=== PATIENT | female | born 1975 | race Caucasian/White ===

== ENCOUNTER 2016-10-29 21:03 | Inpatient (IN) | payer MEDICARE, OTHER ==
[~2016-10-29] VITALS: Ht 165.1 cm; Wt 71.3 kg
--- NOTE | 2016-10-29 21:19 | PD ---
HPI Chief Complaint: Psychiatric Symptoms Time Seen by Provider: 21:19 Loy Lazcano MD Oct 29, 2016 21:19
--- NOTE | 2016-10-29 21:41 | PD ---
HPI Chief Complaint: Psychiatric Symptoms Time Seen by Provider: 21:15 Travel History International Travel<30 days: No Contact w/Intl Traveler<30days: No Traveled to known affect area: No History of Present Illness HPI 41-year-old white female presents to emergency department under Odonnell act by PD. The patient allegedly had made suicidal statements at home after having an argument with family. The patient has a history of bipolar disorder and has been noncompliant with medicines. She was also had a history of a head injury several years ago. She also abuses dextromethorphan/Coricidin. Patient's history and exam is assisted by [employer] sign language. 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, Speech and hearing impediment, traumatic brain injury, bipolar, substance abuse Past Surgical History Surgical History: No Previous Surgery Social History Alcohol Use: No Tobacco Use: Yes Substance Use: No Allergies-Medications (Allergen,Severity, Reaction): Coded Allergies: No Known Allergies (Unverified , 10/29/16) Review of Systems ROS Limitations: Hearing Impaired, Speech Impaired, Poor Historian Except as stated in HPI: all other systems reviewed are Neg General / Constitutional: Positive: Fever, Chills HENT: Positive: Sore Throat, Neck Pain Cardiovascular: Positive: Diaphoresis, No: Palpitations Respiratory: Positive: Cough, Shortness of Breath, Wheezing Gastrointestinal: Positive: Nausea, No: Vomiting Genitourinary: No: Frequency, Dysuria Musculoskeletal: Positive: Myalgias, Arthralgias Skin: No Rash Neurologic: Positive: Weakness, Coordination Problem Psychiatric: Positive: Anxiety, Depression, Substance Abuse, No: Suicidal Ideations, Homicidal Ideation Physical Exam Narrative GENERAL: Well-nourished, well-developed patient. SKIN: Warm and dry. HEAD: Normocephalic and atraumatic. EYES: No scleral icterus. No injection or drainage. ENT: No nasal drainage noted. Mucous membranes pink. Airway patent. NECK: Supple, trachea midline. Moves head freely without obvious discomfort. CARDIOVASCULAR: Regular rate and rhythm without murmurs, gallops, or rubs. RESPIRATORY: Breath sounds equal bilaterally. No accessory muscle use. GASTROINTESTINAL: Abdomen soft, non-tender, nondistended. EXTREMITIES: No cyanosis or edema. BACK: Nontender without obvious deformity. No CVA tenderness. NEURO: Patient is alert and oriented. Patient has a unsteady gait. She has a hearing and speech deficit PSYCH: No delusions. No auditory or visual hallucinations. Data Data Last Documented VS Vital Signs Date Time Temp Pulse Resp B/P (MAP) Pulse Ox O2 Delivery O2 Flow Rate FiO2 10/29/16 22:04 98.4 86 16 124/68 (86) 100 Orders Orders Complete Blood Count With Diff (10/29/16 21:37) Comprehensive Metabolic Panel (10/29/16 21:37) Ed Urine Pregnancytest Poc (10/29/16 21:37) Psych Screen (10/29/16 21:37) Drug Screen, Random Urine (10/29/16 21:37) Alcohol (Ethanol) (10/29/16 21:37) Salicylates (Aspirin) (10/29/16 21:37) Tylenol (Acetaminophen) (10/29/16 21:37) Urinalysis - C+S If Indicated (10/29/16 22:44) Chest, Single Ap (10/29/16 22:44) Iv Access Insert/Monitor (10/29/16 22:44) Ecg Monitoring (10/29/16 22:44) Potassium Chloride (Kcl) (10/29/16 22:45) Potassium Chlor 10 Meq Premix (Kcl 10 Me (10/29/16 22:45) Lorazepam Inj (Ativan Inj) (10/29/16 23:00) Blood Culture (10/29/16 23:02) Lactic Acid (10/29/16 23:02) Piperacil-Tazo 4.5 Gm Premix (Zosyn 4.5 (10/29/16 23:45) Vancomycin Inj (Vancomycin Inj) (10/29/16 23:45) Oximetry (10/29/16 23:47) Oxygen Administration (10/29/16 23:47) Albuterol-Ipratropium Neb (Duoneb Neb) (10/30/16 00:00) Sodium Chloride 0.9% Flush (Ns Flush) (10/30/16 00:00) Electrocardiogram (10/30/16 00:01) Admit Order (Ed Use Only) (10/30/16 00:01) Labs Laboratory Tests Test 10/29/16 21:40 White Blood Count 25.3 TH/MM3 Red Blood Count 3.74 MIL/MM3 Hemoglobin 11.7 GM/DL Hematocrit 35.3 % Mean Corpuscular Volume 94.3 FL Mean Corpuscular Hemoglobin 31.3 PG Mean Corpuscular Hemoglobin Concent 33.2 % Red Cell Distribution Width 13.4 % Platelet Count 271 TH/MM3 Mean Platelet Volume 9.1 FL Neutrophils (%) (Auto) 91.2 % Lymphocytes (%) (Auto) 3.6 % Monocytes (%) (Auto) 5.0 % Eosinophils (%) (Auto) 0.1 % Basophils (%) (Auto) 0.1 % Neutrophils # (Auto) 23.1 TH/MM3 Lymphocytes # (Auto) 0.9 TH/MM3 Monocytes # (Auto) 1.3 TH/MM3 Eosinophils # (Auto) 0.0 TH/MM3 Basophils # (Auto) 0.0 TH/MM3 CBC Comment DIFF FINAL Differential Comment Blood Urea Nitrogen 14 MG/DL Creatinine 0.90 MG/DL Random Glucose 139 MG/DL Total Protein 6.8 GM/DL Albumin 3.1 GM/DL Calcium Level 8.3 MG/DL Alkaline Phosphatase 90 U/L Aspartate Amino Transf (AST/SGOT) 46 U/L Alanine Aminotransferase (ALT/SGPT) 23 U/L Total Bilirubin 0.4 MG/DL Sodium Level 135 MEQ/L Potassium Level 2.9 MEQ/L Chloride Level 102 MEQ/L Carbon Dioxide Level 26.4 MEQ/L Anion Gap 7 MEQ/L Estimat Glomerular Filtration Rate 69 ML/MIN Salicylates Level 2.6 MG/DL Urine Opiates Screen NEG Acetaminophen Level LESS THAN 2.0 MCG/ML Urine Barbiturates Screen NEG Urine Amphetamines Screen NEG Urine Benzodiazepines Screen NEG Urine Cocaine Screen NEG Urine Cannabinoids Screen POS Ethyl Alcohol Level LESS THAN 3 MG/DL MDM Medical Decision Making Medical Screen Exam Complete: Yes Emergency Medical Condition: Yes Medical Record Reviewed: Yes Interpretation(s) CBC & BMP Diagram 10/29/16 21:40 Total Protein 6.8, Albumin 3.1 L, Calcium Level 8.3 L, Alkaline Phosphatase 90, Aspartate Amino Transf (AST/SGOT) 46 H, Alanine Aminotransferase (ALT/SGPT) 23, Total Bilirubin 0.4 Last 24 hours Impressions Chest X-Ray 10/29/16 [id number] Signed Impressions: Service Date/Time: Saturday, October 29, 2016 22:48 - CONCLUSION: Patchy alveolar consolidations within the lung bases bilaterally consistent with probable pneumonia. Clinical correlation is recommended. Elliot Moreau MD Differential Diagnosis MDM: High Differential diagnoses: Schizophrenia, schizoaffective disorder, bipolar, anxiety, depression, adjustment reaction, mood disorder NOS, substance induced mood disorder, infection,electrolyte abnormality, malingering. Narrative Course Mental health screening discussed with the patient. Psychiatric screen ordered. The patient's history and exam is performed using [employer]. IV access is obtained. Patient's potassium is 2.9. White count is 25,000. X- ray of the chest reveals bilateral infiltrates. The patient has been sick and coughing and congested as well as 100 breath. She is given a DuoNeb. She is placed on a monitoring analyst and given IV potassium 10 mEq as well as 60 mEq by mouth. Blood cultures sent as well as lactic acid. Patient's given 4.5 g of Zosyn IV as as well as 1 g of vancomycin IV. The patient will necessitate admission to the hospital for further evaluate her pneumonia. She will be seen as an inpatient by psychiatry under her Odonnell act. A sitter will be ordered. The case has been discussed with Dr. Torres. She agrees to let the patient. She agrees to plan follow-up. Sepsis Criteria SIRS Criteria (2 or more): WBC > 74601, < 4000 or > 10% bands Sepsis Criteria (SIRS+source): Infect source susp/known Diagnosis Primary Impression: Bilateral pneumonia Qualified Codes: J18.9 - Pneumonia, unspecified organism Additional Impressions: bipolar Odonnell act Hypokalemia Condition: Stable Carlos Cerna Oct 29, 2016 21:41
[2016-10-29 22:04] VITALS: BP 124/68; PULSE 86; RESP 16; TEMP 98.4; O2SAT 100
[2016-10-29 22:13] LABS: AUTOMATED NEUTROPHIL # 23.1 TH/MM3 (1.8-7.7); BASOPHIL % 0.1 % (0.0-2.0); EOSINOPHIL % 0.1 % (0.0-4.0); HEMATOCRIT 35.3 % (35.0-46.0); HEMO FLAGS DIFF FINAL; LYMPH % 3.6 % (9.0-44.0); LYMPHOCYTE # 0.9 TH/MM3 (1.0-4.8); MEAN CELL VOLUME 94.3 FL (80.0-100.0); MEAN CORPUSCULAR HEMOGLOBIN 31.3 PG (27.0-34.0); MEAN CORPUSCULAR HGB CONC 33.2 % (32.0-36.0); NEUT % 91.2 % (16.0-70.0); PLATELET COUNT 271 TH/MM3 (150-450); RED BLOOD COUNT 3.74 MIL/MM3 (4.00-5.30); RED CELL DISTRIBUTION WIDTH 13.4 % (11.6-17.2); WHITE BLOOD COUNT 25.3 TH/MM3 (4.0-11.0)
[2016-10-29 22:33] LABS: ALKALINE PHOSPHATASE 90 U/L (45-117); ALT (GPT) 23 U/L (10-53); ANION GAP 7 MEQ/L (5-15); AST (GOT) 46 U/L (15-37); BICARBONATE 26.4 MEQ/L (21.0-32.0); BLOOD UREA NITROGEN 14 MG/DL (7-18); CHLORIDE 102 MEQ/L (98-107); GLOMERULAR FILTRATION RATE 69 ML/MIN (>89); SODIUM (NA) 135 MEQ/L (136-145); TOTAL BILIRUBIN ADULT 0.4 MG/DL (0.2-1.0)
[2016-10-29 22:34] LABS: ACETAMINOPHEN LESS THAN 2.0 MCG/ML (10.0-30.0); ALCOHOL LESS THAN 3 MG/DL (0-5)
[2016-10-29 22:36] LABS: POTASSIUM 2.9 MEQ/L (3.5-5.1)
[2016-10-29] MEDS ORDERED: POTASSIUM CHLOR 10 MEQ PREMIX 100 ML IV ONE (22:45)
[2016-10-29] MEDS ORDERED: POTASSIUM CHLORIDE 20 MEQ CONTROLLED RELEASE TAB PO ONE (22:45)
[2016-10-29] MEDS ORDERED: LORazepam 2 MG/ML VIAL IV PUSH ONE (23:00)
--- NOTE | 2016-10-29 23:11 | RADRPT ---
EXAM DATE/TIME: 10/29/2016 22:48 [facility] COMPARISON: No previous studies available for comparison. INDICATIONS : Cough MEDICAL HISTORY : None. SURGICAL HISTORY : None. ENCOUNTER: Initial ACUITY: 1 day PAIN SCORE: 0/10 LOCATION: chest FINDINGS: Patchy alveolar consolidations are noted within the lung bases consistent with probable pneumonia. Cl inical correlation is recommended. The heart is normal. CONCLUSION: Patchy alveolar consolidations within the lung bases bilaterally consistent with probable pneumonia. Clinical correlation is recommended. Elliot Moreau MD on October 29, 2016 at 23:09 Board Certified Radiologist. This report was verified electronically.
[2016-10-29] MEDS ORDERED: VANCOMYCIN INJ 1,000 MG in SODIUM CHLOR 0.9% 250 ML INJ 250 ML IV ONE (23:45)
[2016-10-29] MEDS ORDERED: PIPERACIL-TAZO 4.5 GM PREMIX 100 ML IV ONE (23:45)
[2016-10-30] VITALS (8 sets, daily range): BP systolic 110–137; BP diastolic 67–80; PULSE 83–97; RESP 16–21; TEMP 97.2–98.9; O2SAT 91–100
[2016-10-30] MEDS ORDERED: RESP: ALBUTEROL 2.5 MG/IPRATROPIUM 0.5 MG NEB (SCH) INH ONE
[2016-10-30] MEDS ORDERED: SODIUM CHLORIDE 0.9% FLUSH 10 ML FLUSH IVF PRN
[2016-10-30] MEDS ORDERED: SENNOSIDES 8.6 MG TAB PO PRN (00:15)
[2016-10-30] MEDS ORDERED: LACTULOSE SYRUP 20 GM/30 ML CUP PO PRN (00:15)
[2016-10-30] MEDS ORDERED: ONDANSETRON HCL 4 MG/2 ML VIAL IVP PRN (00:15)
[2016-10-30] MEDS ORDERED: BISACODYL 10 MG SUPP RECTAL PRN (00:15)
[2016-10-30] MEDS ORDERED: MAGNESIUM HYDROXIDE SUSP 30 ML CUP PO PRN (00:15)
[2016-10-30] MEDS ORDERED: SODIUM CHLORIDE 0.9% FLUSH 10 ML FLUSH IV FLUSH PRN (00:15)
[2016-10-30] MEDS ORDERED: ACETAMINOPHEN 325 MG TAB PO PRN (00:15)
[2016-10-30] MEDS ORDERED: Vancomycin Consult Pharmacy 1 EA OTHER SCH (00:15)
[2016-10-30 00:33] LABS: BACTERIA, URINE OCC /hpf; BLOOD, URINE NEG (NEG); COMMENT (UR) CULT NOT INDICATED; CULTURE IF INDICATED CULT NOT INDICATED; GLUCOSE,URINE NEG (NEG); KETONE, URINE 10 mg/dL (NEG); MUCUS URINE FEW /lpf (OCC); NITRITE,URINE NEG (NEG); SQUAMOUS EPITHELIAL CELL URINE 5 /hpf (0-5); URINE COLOR LIGHT-YELLOW (YELLW/STRAW)
[2016-10-30] MEDS ORDERED: VANCOMYCIN INJ 2,000 MG in SODIUM CHLORID 0.9% 500 ML INJ 500 ML IV ONE (01:00)
--- NOTE | 2016-10-30 01:17 | HHI.HP ---
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 Per report, pt apparently had argument w/ family members and told them she wanted to hurt herself. Pt apparently moved to area recently and has been off of all medications. On arrival, BP 124/60, HR 86, O2 sat 100% on RA, Afebrile. WBC 25.3 with elevated neutrophil count. K + 2.9. GFR 69. Lactic Acid 0.8. Urine Drug Screen positive for Marijuana. Alcohol negative. CXR with patchy alveolar consolidation at the lung bases bilaterally consistent with probable pneumonia. S/p Vanc/Zosyn in ER. Review of Systems Except as stated in HPI: all other systems reviewed are Neg ROS: 14 point review of systems otherwise negative. 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 No h/o DM or CAD Social History PAST SOCIAL HISTORY: Negative for alcohol. Positive for tobacco. History of substance abuse Physical Exam Vital Signs Vital Signs Date Time Temp Pulse Resp B/P (MAP) Pulse Ox O2 Delivery O2 Flow Rate FiO2 10/30/16 00:00 99 Nasal Cannula 2.00 10/30/16 00:00 21 99 Nasal Cannula 2.00 10/29/16 22:04 98.4 86 16 124/68 (86) 100 Physical Exam PE: GENERAL: Middle-aged white female in no acute distress. Hearing impaired. HEENT: PERRLA, EOMI. No scleral icterus or conjunctival pallor. No lid lag or facial droop. CARDIOVASCULAR: Regular rate and rhythm. No obvious murmurs to auscultation. No chest tenderness to palpation. RESPIRATORY: No obvious rhonchi or wheezing. Clear to auscultation. Breath sounds equal bilaterally. GASTROINTESTINAL: Abdomen soft, non-tender, nondistended. BS normal. MUSCULOSKELETAL: Extremities without clubbing, cyanosis, or edema. No obvious deformities. NEUROLOGICAL: Awake, alert and oriented x4. No focal neurologic deficits. Moving both upper and lower extremities spontaneously. Laboratory Laboratory Tests Test 10/29/16 02:10 10/29/16 21:40 10/30/16 00:05 Urine Color LIGHT-YELLOW Urine Turbidity HAZY Urine pH 6.0 Urine Specific [place] 1.008 Urine Protein NEG Urine Glucose (UA) NEG Urine Ketones 10 Urine Occult Blood NEG Urine Nitrite NEG Urine Bilirubin NEG Urine Urobilinogen LESS THAN 2.0 Urine Leukocyte Esterase TRACE Urine RBC LESS THAN 1 Urine WBC 2 Urine Squamous Epithelial Cells 5 Urine Bacteria OCC Urine Mucus FEW Microscopic Urinalysis Comment CULT NOT INDICATED White Blood Count 25.3 Red Blood Count 3.74 Hemoglobin 11.7 Hematocrit 35.3 Mean Corpuscular Volume 94.3 Mean Corpuscular Hemoglobin 31.3 Mean Corpuscular Hemoglobin Concent 33.2 Red Cell Distribution Width 13.4 Platelet Count 271 Mean Platelet Volume 9.1 Neutrophils (%) (Auto) 91.2 Lymphocytes (%) (Auto) 3.6 Monocytes (%) (Auto) 5.0 Eosinophils (%) (Auto) 0.1 Basophils (%) (Auto) 0.1 Neutrophils # (Auto) 23.1 Lymphocytes # (Auto) 0.9 Monocytes # (Auto) 1.3 Eosinophils # (Auto) 0.0 Basophils # (Auto) 0.0 CBC Comment DIFF FINAL Differential Comment Blood Urea Nitrogen 14 Creatinine 0.90 Random Glucose 139 Total Protein 6.8 Albumin 3.1 Calcium Level 8.3 Alkaline Phosphatase 90 Aspartate Amino Transf (AST/SGOT) 46 Alanine Aminotransferase (ALT/SGPT) 23 Total Bilirubin 0.4 Sodium Level 135 Potassium Level 2.9 Chloride Level 102 Carbon Dioxide Level 26.4 Anion Gap 7 Estimat Glomerular Filtration Rate 69 Salicylates Level 2.6 Urine Opiates Screen NEG Acetaminophen Level LESS THAN 2.0 Urine Barbiturates Screen NEG Urine Amphetamines Screen NEG Urine Benzodiazepines Screen NEG Urine Cocaine Screen NEG Urine Cannabinoids Screen POS Ethyl Alcohol Level LESS THAN 3 Lactic Acid Level 0.8 Date/Time Source Procedure Growth Status 10/30/16 00:05 Blood Peripheral Aerobic Blood Culture Pending Received 10/30/16 00:05 Blood Peripheral Anaerobic Blood Culture Pending Received Result Diagram: 10/29/16213910/29/162139 Caprini VTE Risk Assessment Caprini VTE Risk Assessment: No/Low Risk (score <= 1) Caprini Risk Assessment Model Point Value = 1 Point Value = 2 Point Value = 3 Point Value = 5 Age 41-60 Minor surgery BMI > 25 kg/m2 Swollen legs Varicose veins or History of unexplained or recurrent spontaneous Oral contraceptives or hormone replacement Sepsis (< 1 month) Serious lung disease, including pneumonia (< 1 month) Abnormal pulmonary function Acute myocardial infarction Congestive heart failure (< 1 month) History of inflammatory bowel disease Medical patient at bed rest Age 61-74 Arthroscopic surgery Major open surgery (> 45 min) Laparoscopic surgery (> 45 min) Malignancy Confined to bed (> 72 hours) Immobilizing plaster cast Central venous access Age >= 75 History of VTE Family history of VTE Factor V Leiden Prothrombin [id number] Lupus anticoagulant Anticardiolipin antibodies Elevated serum homocysteine Heparin-induced thrombocytopenia Other congenital or acquired thrombophilia Stroke (< 1 month) Elective arthroplasty Hip, pelvis, or leg fracture Acute spinal cord injury (< 1 month) Prophylaxis Regimen Total Risk Factor Score Risk Level Prophylaxis Regimen 0-1 Low Early ambulation 2 Moderate Order ONE of the following: *Sequential Compression Device (SCD) *Heparin 5000 units SQ BID 3-4 Higher Order ONE of the following medications: *Heparin 5000 units SQ TID *Enoxaparin/Lovenox 40 mg SQ daily (WT < 150 kg, CrCl > 30 mL/min) *Enoxaparin/Lovenox 30 mg SQ daily (WT < 150 kg, CrCl > 10-29 mL/min) *Enoxaparin/Lovenox 30 mg SQ BID (WT < 150 kg, CrCl > 30 mL/min) AND/OR *Sequential Compression Device (SCD) 5 or more Highest Order ONE of the following medications: *Heparin 5000 units SQ TID (Preferred with Epidurals) *Enoxaparin/Lovenox 40 mg SQ daily (WT < 150 kg, CrCl > 30 mL/min) *Enoxaparin/Lovenox 30 mg SQ daily (WT < 150 kg, CrCl > 10-29 mL/min) *Enoxaparin/Lovenox 30 mg SQ BID (WT < 150 kg, CrCl > 30 mL/min) AND *Sequential Compression Device (SCD) Assessment and Plan Problem List: (1) PNA (pneumonia) ICD Code: J18.9 - Pneumonia, unspecified organism (2) Hypokalemia ICD Code: E87.6 - Hypokalemia Status: Acute (3) Suicidal ideation ICD Code: R45.851 - Suicidal ideations (4) Deafness ICD Code: H91.90 - Unspecified hearing loss, unspecified ear (5) Tobacco abuse ICD Code: Z72.0 - Tobacco use Assessment and Plan A/P: 1. PNA: WBC 25.3, afebrile, CXR w/ bilateral patchy consolidations, likely pneumonia, images reviewed by me. S/p Vanc/Zosyn in ER, follow up Blood/Sputum Cultures, continue IV Abx, DuoNeb prn, Mucinex. 2. Hypokalemia: K+ 2.8, s/p replacement in ER, will recheck and replace as needed. 3. Suicidal Ideation: Currently under Odonnell Act by Police. [place]. Consult Psych. 4. 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 5. Tobacco Abuse: Pt counselled. Ativan/NicoDerm prn if needed. 6. DVT Prophylaxis: SCD/Teds. 7. Social work for d/c planning as needed. 8. Case discussed at length w/ ER physician Physician Certification 2 Midnight Certification Type: Admission for Inpatient Services Order for Inpatient Services The services are ordered in accordance with Medicare regulations or non- Medicare payer requirements, as applicable. In the case of services not specified as inpatient-only, they are appropriately provided as inpatient services in accordance with the 2-midnight benchmark. Estimated LOS (days): 2 days is the estimated time the patient will need to remain in the hospital, assuming treatment plan goals are met and no additional complications. Post-Hospital Plan: Not yet determined Vero Torres MD Oct 30, 2016 01:17
[2016-10-30] MEDS: RESP: ALBUTEROL 2.5 MG/IPRATROPIUM 0.5 MG NEB (PRN) NEB (03:11)
[2016-10-30 07:38] LABS: AUTOMATED NEUTROPHIL # 11.6 TH/MM3 (1.8-7.7); BASOPHIL % 0.2 % (0.0-2.0); EOSINOPHIL # 0.1 TH/MM3 (0-0.4); EOSINOPHIL % 0.4 % (0.0-4.0); HEMATOCRIT 31.2 % (35.0-46.0); HEMO FLAGS DIFF FINAL; LYMPH % 11.6 % (9.0-44.0); LYMPHOCYTE # 1.7 TH/MM3 (1.0-4.8); MEAN CELL VOLUME 94.2 FL (80.0-100.0); MEAN CORPUSCULAR HEMOGLOBIN 31.3 PG (27.0-34.0); MEAN CORPUSCULAR HGB CONC 33.2 % (32.0-36.0); MONO % 6.3 % (0.0-8.0); NEUT % 81.5 % (16.0-70.0); PLATELET COUNT 236 TH/MM3 (150-450); RED BLOOD COUNT 3.31 MIL/MM3 (4.00-5.30); RED CELL DISTRIBUTION WIDTH 13.2 % (11.6-17.2); WHITE BLOOD COUNT 14.2 TH/MM3 (4.0-11.0)
[2016-10-30] MEDS: PIPERACIL-TAZO 4.5 GM PREMIX 100 ML IV SCH ×3 (07:50→17:36)
[2016-10-30 08:09] LABS: ANION GAP 4 MEQ/L (5-15); AST (GOT) 33 U/L (15-37); BICARBONATE 29.2 MEQ/L (21.0-32.0); BLOOD UREA NITROGEN 10 MG/DL (7-18); CHLORIDE 102 MEQ/L (98-107); GLOMERULAR FILTRATION RATE 80 ML/MIN (>89); POTASSIUM 3.4 MEQ/L (3.5-5.1); SODIUM (NA) 135 MEQ/L (136-145)
[2016-10-30 08:10] LABS: ALT (GPT) 21 U/L (10-53)
[2016-10-30 08:13] LABS: ALKALINE PHOSPHATASE 76 U/L (45-117); TOTAL BILIRUBIN ADULT 0.4 MG/DL (0.2-1.0)
[2016-10-30] MEDS: guaiFENesin E.R. 600 MG TAB PO SCH ×2 (10:15→20:37)
[2016-10-30] MEDS: DOCUSATE SODIUM 50 MG/SENNA 8.6 MG TAB PO SCH ×2 (10:15→20:36)
[2016-10-30] MEDS: SODIUM CHLORIDE 0.9% FLUSH 10 ML FLUSH IV FLUSH SCH ×2 (10:16→20:37)
[2016-10-30] MEDS: VANCOMYCIN 1,000 MG/NS 250 ML IV SCH ×4 (10:16→20:34)
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
[2016-10-30] MEDS ORDERED: MENTHOL LOZENGE BUCCAL PRN (14:30)
--- NOTE | 2016-10-30 14:30 | EKG ---
Date Performed: 10/30/2016 Time Performed: 00:12:19 PTAGE: 41 years EKG: Sinus rhythm POSSIBLE RIGHT ATRIAL ENLARGEMENT LEFT ATRIAL ENLARGEMENT POSSIBLE LEFT VENTRICULAR HYPERTROPHY NONS PECIFIC T-WAVE ABNORMALITY ABNORMAL ECG NO PREVIOUS TRACING DOCTOR: Maxx Bennett Interpretating Date/Time 10/30/2016 14:26:44
[2016-10-30] MEDS: IBUPROFEN 200 MG TAB PO PRN (15:46)
--- NOTE | 2016-10-30 15:53 | HHI.PR ---
Addendum to Inpatient Note Additional Information Patient seen and examined she requested Motrin and muscle relaxant as well as lozenge for her cough Psychiatry will be seeing her later Helena Craft MD Oct 30, 2016 15:53
[2016-10-30] MEDS ORDERED: PILL SPLITTER OTHER PRN (17:30)
[2016-10-30] MEDS: CYCLOBENZAPRINE HCL 10 MG TAB PO PRN (20:36)
[2016-10-31] VITALS (9 sets, daily range): BP systolic 114–134; BP diastolic 68–82; PULSE 86–93; RESP 16–19; TEMP 97.1–100; O2SAT 92–100
[2016-10-31] MEDS: PIPERACIL-TAZO 4.5 GM PREMIX 100 ML IV SCH ×4 (01:25→17:26)
[2016-10-31] MEDS: RESP: ALBUTEROL 2.5 MG/IPRATROPIUM 0.5 MG NEB (PRN) NEB ×2 (01:47→15:35)
[2016-10-31] MEDS ORDERED: ARIPiprazole 10 MG TAB PO SCH (09:00)
[2016-10-31] MEDS: IBUPROFEN 200 MG TAB PO PRN (09:34)
[2016-10-31] MEDS: guaiFENesin E.R. 600 MG TAB PO SCH (09:34)
[2016-10-31] MEDS: DOCUSATE SODIUM 50 MG/SENNA 8.6 MG TAB PO SCH (09:34)
[2016-10-31] MEDS: VANCOMYCIN 1,000 MG/NS 250 ML IV SCH ×2 (09:45)
[2016-10-31] MEDS: CYCLOBENZAPRINE HCL 10 MG TAB PO PRN (15:17)
--- NOTE | 2016-10-31 17:14 | HHI.PR ---
Subjective Remarks Patient is obviously poor historian but she still complaining of cough She is on Abilify by psychiatry will monitor electrolyte and QTC Objective Vitals Vital Signs Date Time Temp Pulse Resp B/P (MAP) Pulse Ox O2 Delivery O2 Flow Rate FiO2 10/31/16 16:48 16 10/31/16 15:35 92 21 10/31/16 12:00 98.7 91 18 132/80 (97) 93 10/31/16 11:00 20 10/31/16 08:00 99.2 93 19 130/78 (95) 92 10/31/16 04:00 100.0 88 17 115/68 (84) 96 10/31/16 01:47 94 Nasal Cannula 2.00 10/31/16 00:00 97.1 93 16 114/72 (86) 100 10/30/16 20:26 100 Nasal Cannula 3.00 10/30/16 19:00 98.9 92 19 110/70 (83) 91 I/O 10/30/16 10/30/16 10/30/16 10/31/16 10/31/16 10/31/16 07:00 15:00 23:00 07:00 15:00 23:00 Intake Total 240 ml 820 ml 730 ml 440 ml 350 ml Output Total 400 ml Balance 240 ml 820 ml 730 ml 40 ml 350 ml Intake Oral 240 ml 720 ml 480 ml 240 ml IV Total 100 ml 250 ml 200 ml 350 ml Output Urine Total 400 ml Stool Total 0 ml # Voids 1 3 3 0 # Bowel Movements 0 0 0 Result Diagram: 10/30/16 0640 10/30/16 0640 Objective Remarks GENERAL: This is a well-nourished, well-developed patient, in no apparent distress. SKIN: No rashes, warm and dry HEAD: Atraumatic. Normocephalic. EYES: Pupils equal round and reactive. Extraocular motions intact. No scleral icterus. ENT: Nose without bleeding, or drainage, Airway patent. NECK: Trachea midline. Supple CARDIOVASCULAR: Regular rate and rhythm without murmurs, gallops, or rubs. RESPIRATORY: Fair air entry bilaterally. No wheezes, rales, or rhonchi. GASTROINTESTINAL: Abdomen soft, non-tender, nondistended. Positive bowel sounds MUSCULOSKELETAL: Extremities without clubbing, cyanosis, or edema. Pedal pulses appreciated NEUROLOGICAL: Awake and alert. Moves all extremity. Normal speech.no focal neurological deficit A/P Problem List: (1) PNA (pneumonia) ICD Code: J18.9 - Pneumonia, unspecified organism (2) Hypokalemia ICD Code: E87.6 - Hypokalemia Status: Acute (3) Suicidal ideation ICD Code: R45.851 - Suicidal ideations (4) Deafness ICD Code: H91.90 - Unspecified hearing loss, unspecified ear (5) Tobacco abuse ICD Code: Z72.0 - Tobacco use Assessment and Plan 1. PNA: With leukocytosis, cough, CXR w/ bilateral patchy, follow up Blood/ Sputum Cultures, continue IV Abx, DuoNeb prn, Mucinex. 2. Hypokalemia: Replace, monitor BMP. 3. Suicidal Ideation: Appreciate psychiatry auscultation, plan to continue with Odonnell act, started Abilify, monitor electrolyte and QTC, discharged to inpatient psych when medically clear 4. 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 5. Tobacco Abuse: Pt counselled. Ativan/NicoDerm prn if needed. 6. DVT Prophylaxis: SCD/Teds. Helena Craft MD Oct 31, 2016 17:14
[2016-10-31] MEDS: SODIUM CHLORIDE 0.9% FLUSH 10 ML FLUSH IV FLUSH SCH (17:26)
[2016-10-31] MEDS ORDERED: PHARMACY ORDERED LAB ONE (21:45)
[2016-10-31 23:08] LABS: BICARBONATE 25.3 MEQ/L (21.0-32.0); MAGNESIUM 2.2 MG/DL (1.5-2.5); POTASSIUM 3.8 MEQ/L (3.5-5.1)
--- NOTE | 2016-11-01 17:15 | EKG ---
Date Performed: 10/31/2016 Time Performed: 18:21:07 PTAGE: 41 years EKG: Sinus rhythm MINIMAL VOLTAGE CRITERIA FOR LVH, CONSIDER NORMAL VARIANT Since previous tracing, no significant ester nge noted BORDERLINE ECG PREVIOUS TRACING : 10/30/2016 00.12 DOCTOR: Lizzy Groves Interpretating Date/Time 11/01/2016 17:08:39
== END 2016-10-31 19:54 | DRG 194 ==
LOC: NEPD 21:03 → NEDA 10-30 00:05 → N06B 10-30 01:19
PROVIDERS: ADMIT Hospitalist; ATTEND Hospitalist
DX: J18.9 Pneumonia, unspecified organism (principal); R45.851 Suicidal ideations; F31.60 Bipolar disorder, current episode mixed, unspecified; E87.6 Hypokalemia; H91.90 Unspecified hearing loss, unspecified ear; Z72.0 Tobacco use; F12.90 Cannabis use, unspecified, uncomplicated; F15.90 Other stimulant use, unspecified, uncomplicated; Z91.19 Patient's noncompliance with other medical treatment and regimen
CPT/HCPCS: 71010; 80048; 80053; 80307; 81001; 83605; 83735; 84100; 84443; 84703; 85025; 87040; 93005; 94640; 94664; 96374; J2060; J2543; J3370; J3480; J7050

== ENCOUNTER 2016-10-31 20:15 | Inpatient (IN) | payer MEDICARE, MEDICAID, OTHER ==
[2016-10-31 20:00] VITALS: BP 121/74; PULSE 85; RESP 14; TEMP 98.8; O2SAT 99
[2016-10-31] MEDS ORDERED: diphenhydrAMINE HCL 50 MG CAP PO PRN (21:15)
[2016-10-31] MEDS ORDERED: VANCOMYCIN INJ 1,000 MG in SODIUM CHLOR 0.9% 250 ML INJ 250 ML IV SCH ×3 (21:15→23:00)
[2016-10-31] MEDS ORDERED: LORazepam 2 MG/ML VIAL IM PRN (21:15)
[2016-10-31] MEDS ORDERED: BENZTROPINE MESYLATE 2 MG/2 ML VIAL IM PRN (21:15)
[2016-10-31] MEDS ORDERED: BENZTROPINE MESYLATE 1 MG TAB PO PRN (21:15)
[2016-10-31] MEDS ORDERED: MAGNESIUM HYDROXIDE SUSP 30 ML CUP PO PRN (21:15)
[2016-10-31] MEDS ORDERED: LORazepam 1 MG TAB PO PRN (21:15)
[2016-10-31] MEDS ORDERED: ALUMINUM/MAGNESIUM/SIMETH 30 ML CUP PO PRN (21:15)
[2016-10-31] MEDS ORDERED: RESP: ALBUTEROL 2.5 MG/IPRATROPIUM 0.5 MG NEB (PRN) NEB (21:15)
[2016-10-31] MEDS ORDERED: PHARMACY ORDERED LAB ONE (22:00)
[2016-10-31] MEDS ORDERED: Vancomycin Consult Pharmacy 1 EA OTHER SCH (22:00)
[2016-10-31] MEDS: ACETAMINOPHEN 325 MG TAB PO PRN (22:15)
[2016-10-31] MEDS: PIPERACIL-TAZO 4.5 GM PREMIX 100 ML IV SCH (22:16)
[2016-11-01] MEDS: PIPERACIL-TAZO 4.5 GM PREMIX 100 ML IV SCH ×4 (04:43→22:26)
[2016-11-01 05:26] VITALS: BP 114/71; PULSE 78; RESP 16; TEMP 98; O2SAT 97
[2016-11-01] MEDS: DOCUSATE SODIUM 50 MG/SENNA 8.6 MG TAB PO SCH ×2 (08:52→20:16)
[2016-11-01] MEDS: VANCOMYCIN INJ 1,000 MG in SODIUM CHLOR 0.9% 250 ML INJ 250 ML IV SCH ×2 (08:52→16:34)
[2016-11-01] MEDS: guaiFENesin E.R. 600 MG TAB PO SCH ×2 (08:52→20:16)
[2016-11-01] MEDS: ARIPiprazole 10 MG TAB PO SCH (08:52)
[2016-11-01] MEDS: NICOTINE 21 MG/24 HR PATCH T-DERMAL SCH (08:53)
[2016-11-01] MEDS: ACETAMINOPHEN 325 MG TAB PO PRN ×3 (08:53→20:25)
[2016-11-01] MEDS: REMOVE OLD PATCH T-DERMAL SCH (08:54)
[2016-11-01 09:19] LABS: AUTOMATED NEUTROPHIL # 5.5 TH/MM3 (1.8-7.7); BASOPHIL # 0.1 TH/MM3 (0-0.2); BASOPHIL % 0.7 % (0.0-2.0); EOSINOPHIL # 0.4 TH/MM3 (0-0.4); EOSINOPHIL % 4.7 % (0.0-4.0); HEMATOCRIT 33.7 % (35.0-46.0); HEMO FLAGS DIFF FINAL; LYMPH % 17.8 % (9.0-44.0); LYMPHOCYTE # 1.4 TH/MM3 (1.0-4.8); MEAN CELL VOLUME 95.2 FL (80.0-100.0); MEAN CORPUSCULAR HEMOGLOBIN 31.1 PG (27.0-34.0); MEAN CORPUSCULAR HGB CONC 32.7 % (32.0-36.0); NEUT % 67.8 % (16.0-70.0); PLATELET COUNT 249 TH/MM3 (150-450); RED BLOOD COUNT 3.53 MIL/MM3 (4.00-5.30); RED CELL DISTRIBUTION WIDTH 13.2 % (11.6-17.2); WHITE BLOOD COUNT 8.1 TH/MM3 (4.0-11.0)
[2016-11-01 09:44] LABS: HDL CHOLESTEROL 47.5 MG/DL (40.0-60.0); LDL CHOLESTEROL 86 MG/DL (0-99)
[2016-11-01 10:33] LABS: HEMOGLOBIN A1a 1.3 %; HEMOGLOBIN A1b 1.8 %; HEMOGLOBIN Ao 84.6 %; HEMOGLOBIN LA1C 2.2 %; HEMOGLOBIN P3 3.7 %
--- NOTE | 2016-11-01 12:00 | HHI.PR ---
Subjective Remarks Patient sleeping, she woke up and looked comfortable smiling, stated she still coughing, denied fever or chills, nurse at the bedside Objective Vitals Vital Signs Date Time Temp Pulse Resp B/P (MAP) Pulse Ox O2 Delivery O2 Flow Rate FiO2 11/01/16 05:26 98.0 78 16 114/71 (85) 97 10/31/16 23:30 18 10/31/16 20:00 98.8 85 14 121/74 (90) 99 I/O 10/31/16 10/31/16 10/31/16 11/01/16 11/01/16 11/01/16 07:00 15:00 23:00 07:00 15:00 23:00 Intake Total 100 ml 1070 ml 240 ml Output Total 1 ml Balance 100 ml 1069 ml 240 ml Intake Oral 720 ml 240 ml IV Total 100 ml 350 ml Output Urine Total 1 ml Result Diagram: 11/01/16 0825 Objective Remarks GENERAL: This is a well-nourished, well-developed patient, in no apparent distress. SKIN: No rashes, warm and dry HEAD: Atraumatic. Normocephalic. EYES: Pupils equal round and reactive. Extraocular motions intact. No scleral icterus. ENT: Nose without bleeding, or drainage, Airway patent. NECK: Trachea midline. Supple CARDIOVASCULAR: Regular rate and rhythm without murmurs, gallops, or rubs. RESPIRATORY: Fair air entry bilaterally. No wheezes, rales, or rhonchi. GASTROINTESTINAL: Abdomen soft, non-tender, nondistended. Positive bowel sounds MUSCULOSKELETAL: Extremities without clubbing, cyanosis, or edema. Pedal pulses appreciated NEUROLOGICAL: Awake and alert. Moves all extremity. Normal speech.no focal neurological deficit A/P Assessment and Plan 11/01: Continue iv antibiotic, patient transferred to med psych floor - PNA: leukocytosis, cough, CXR w/ bilateral patchy, follow up Blood/Sputum Cultures, continue IV Abx, DuoNeb prn, Mucinex. -Leukocytosis improvedsee dropped from 25-14 K - Hypokalemia: Replace, monitor BMP. 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 - Tobacco Abuse: Pt counselled. Ativan/NicoDerm prn if needed. - DVT Prophylaxis: SCD/Teds. Helena Craft MD Nov 01, 2016 12:00
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
[2016-11-01 18:33] VITALS: BP 131/84; PULSE 93; RESP 17; TEMP 98.5
[2016-11-01] MEDS ORDERED: MENTHOL LOZENGE BUCCAL ONE (23:45)
[2016-11-02] MEDS: VANCOMYCIN INJ 1,000 MG in SODIUM CHLOR 0.9% 250 ML INJ 250 ML IV SCH (00:55)
[2016-11-02] MEDS: PIPERACIL-TAZO 4.5 GM PREMIX 100 ML IV SCH (04:22)
[2016-11-02 06:00] VITALS: BP 143/96; PULSE 90; RESP 16; TEMP 98.2; O2SAT 97
[2016-11-02] MEDS ORDERED: PHARMACY ORDERED LAB ONE (08:45)
[2016-11-02] MEDS: DOCUSATE SODIUM 50 MG/SENNA 8.6 MG TAB PO SCH ×2 (09:00→21:34)
[2016-11-02] MEDS: NICOTINE 21 MG/24 HR PATCH T-DERMAL SCH (09:00)
[2016-11-02] MEDS: REMOVE OLD PATCH T-DERMAL SCH (09:00)
[2016-11-02] MEDS: ARIPiprazole 10 MG TAB PO SCH (09:00)
[2016-11-02] MEDS: guaiFENesin E.R. 600 MG TAB PO SCH ×2 (09:00→21:34)
[2016-11-02] MEDS: ACETAMINOPHEN 325 MG TAB PO PRN ×2 (09:17→21:37)
[2016-11-02] MEDS: LEVOFLOXACIN 750 MG TAB PO SCH (10:00)
--- NOTE | 2016-11-02 11:09 | HHI.PR ---
Subjective Remarks patient telling me she still have some short of breath, she showed me phlegm with tinged blood No fever I discussed with the nurse nausea or vomiting Will switch antibiotic to Levaquin, will give breathing treatment and monitor overnight Objective Vitals Vital Signs Date Time Temp Pulse Resp B/P (MAP) Pulse Ox O2 Delivery O2 Flow Rate FiO2 11/02/16 06:00 98.2 90 16 143/96 (112) 97 11/01/16 18:33 98.5 93 17 131/84 (100) I/O 11/01/16 11/01/16 11/01/16 11/02/16 11/02/16 11/02/16 06:59 14:59 22:59 06:59 14:59 22:59 Intake Total 1070 ml 240 ml 1080 ml 450 ml 240 ml Output Total 1 ml Balance 1069 ml 240 ml 1080 ml 450 ml 240 ml Intake Oral 720 ml 240 ml 1080 ml 240 ml IV Total 350 ml 450 ml Output Urine Total 1 ml # Voids 2 1 # Bowel Movements 1 Result Diagram: 11/01/16 0825 Objective Remarks GENERAL: This is a well-nourished, well-developed patient, in no apparent distress. SKIN: No rashes, warm and dry HEAD: Atraumatic. Normocephalic. EYES: Pupils equal round and reactive. Extraocular motions intact. No scleral icterus. ENT: Nose without bleeding, or drainage, Airway patent. NECK: Trachea midline. Supple CARDIOVASCULAR: Regular rate and rhythm without murmurs, gallops, or rubs. RESPIRATORY: Fair air entry bilaterally. Minimal wheezes, no rales, or rhonchi. GASTROINTESTINAL: Abdomen soft, non-tender, nondistended. Positive bowel sounds MUSCULOSKELETAL: Extremities without clubbing, cyanosis, or edema. Pedal pulses appreciated NEUROLOGICAL: Awake and alert. Moves all extremity. Normal speech.no focal neurological deficit A/P Assessment and Plan 11/02: DC iv Zosyn and Vanco, start Levaquin by mouth, will give DuoNeb scheduled , I ordered EKG which showed sinus rhythm, QTC within normal limit - PNA: leukocytosis, cough, CXR w/ bilateral patchy, follow up Blood/Sputum Cultures, continue IV Abx, DuoNeb prn, Mucinex. -Leukocytosis improvedsee dropped from 25-14 K - Hypokalemia: Replace, monitor BMP. 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 - Tobacco Abuse: Pt counselled. Ativan/NicoDerm prn if needed. - DVT Prophylaxis: SCD/Teds. Discharge Planning Will clear for transfer to inpatient psych if no fever and stable on by mouth Helena Euceda MD Nov 02, 2016 11:09
[2016-11-02] MEDS ORDERED: RESP: ALBUTEROL 2.5 MG/IPRATROPIUM 0.5 MG NEB (PRN) NEB (11:15)
[2016-11-02] MEDS: RESP: ALBUTEROL 2.5 MG/IPRATROPIUM 0.5 MG NEB (SCH) NEB ×2 (11:20→17:33)
--- NOTE | 2016-11-02 15:16 | HHI.PYPN ---
Subjective Remarks Patient seen for follow-up, chart reviewed. Patient seen with the assistance of the video neon sign mechanic. Patient reports feeling "better", and states that she was sleeping better with her mood being "great and wonderful". Patient states that she is responding well to the current treatment regimen denies any adverse drug reactions. Patient denies any suicidality denies any racing thoughts and irritability and feels that her mood has been stable. Patient reports that she misses her home and would like to be discharged soon as she is feeling much better. Patient aware that she is currently continuing medical management for pneumonia. Patient reports looking forward to be visited by her mother later this evening. Review of Systems Except as stated in HPI: all other systems reviewed are Neg Objective Alert: Yes [place]: Person, Place, Date Mood: Calm Affect: Appropriate Memory Intact: Comment (intact) Hallucinations: Other (denies) Delusions: No Delusion Type: Other (denies) Suicidal: Ideation (denies) Homicidal: Ideation (denies) Insight/Judgment Fair insight, impulse control and judgment Labs Labs reviewed. Test 11/02/16 09:00 Vancomycin Level Trough 11.3 MCG/ML Vitals/IOs Vital Signs Date Time Temp Pulse Resp B/P (MAP) Pulse Ox O2 Delivery O2 Flow Rate FiO2 11/02/16 06:00 98.2 90 16 143/96 (112) 97 Intake and Output 11/02/16 11/02/16 11/03/16 08:00 16:00 00:00 Intake Total 350 ml 240 ml Balance 350 ml 240 ml Assessment & Plan Problem List: (1) Bipolar affective, mixed ICD Codes: F31.60 - Bipolar disorder, current episode mixed, unspecified Status: Acute Assessment & Plan Patient seen for follow-up, chart reviewed. Patient this time responding well to current treatment, endorsing stable mood. Patient currently on continued management for pneumonia as per primary medical team. Once medically cleared patient likely to be discharged with outpatient follow-up for continuity of care for both medical and mental health services. Discharge planning in progress Justification for Cont. Inpt. At risk for further decompensation if at lower level of care Bong Armenta MD Nov 02, 2016 15:16
[2016-11-02 18:00] VITALS: BP 137/92; PULSE 92; RESP 18; TEMP 98.1; O2SAT 99
[2016-11-03 06:00] VITALS: BP 139/91; PULSE 86; RESP 18; TEMP 97.9; O2SAT 99
[2016-11-03] MEDS: RESP: ALBUTEROL 2.5 MG/IPRATROPIUM 0.5 MG NEB (SCH) NEB ×3 (07:19→17:24)
[2016-11-03] MEDS: DOCUSATE SODIUM 50 MG/SENNA 8.6 MG TAB PO SCH (07:48)
[2016-11-03] MEDS: guaiFENesin E.R. 600 MG TAB PO SCH (07:48)
[2016-11-03] MEDS: REMOVE OLD PATCH T-DERMAL SCH (07:48)
[2016-11-03] MEDS: ARIPiprazole 10 MG TAB PO SCH (07:48)
[2016-11-03] MEDS: NICOTINE 21 MG/24 HR PATCH T-DERMAL SCH (07:49)
[2016-11-03] MEDS: LEVOFLOXACIN 750 MG TAB PO SCH (07:49)
[2016-11-03] MEDS: ACETAMINOPHEN 325 MG TAB PO PRN ×2 (07:49→14:58)
--- NOTE | 2016-11-03 11:38 | EKG ---
Date Performed: 11/02/2016 Time Performed: 10:30:23 PTAGE: 41 years EKG: NORMAL Sinus rhythm NORMAL AXIS NORMAL EKG PREVIOUS TRACING : 10/31/2016 18.21 DOCTOR: Diego Martin Interpretating Date/Time 11/03/2016 11:36:49
--- NOTE | 2016-11-03 13:57 | HHI.PYPN ---
Subjective Remarks Patient seen for follow-up, chart reviewed. Patient interview with video tool and die maker level five for sign language. Patient states that she had been feeling much better, although reports at some difficulty sleeping less evening. She states that she would like to have regular clothes on a hospital but would much rather prefer going home soon. Where that medical team continues to manage her current medical treatment unclear whether she is medically cleared yet for discharge. Which she understand. Patient stated that for the past couple days she had been taking very positive chart it feels stressed and at this time does not feel stressed. Patient reports feeling adequate social support by her boyfriend looks forward to going home soon. Review of Systems Except as stated in HPI: all other systems reviewed are Neg Objective Alert: Yes [place]: Person, Place, Date Mood: Calm Affect: Appropriate Memory Intact: Comment (intact) Hallucinations: Other (denies) Delusions: No Delusion Type: Other (denies) Suicidal: Ideation (denies) Homicidal: Ideation (denies) Insight/Judgment Fair insight, impulse control and judgment Vitals/IOs Vital Signs Date Time Temp Pulse Resp B/P (MAP) Pulse Ox O2 Delivery O2 Flow Rate FiO2 11/03/16 06:00 97.9 86 18 139/91 (107) 99 Intake and Output 11/03/16 11/03/16 11/03/16 07:59 15:59 23:59 Intake Total 1560 ml Balance 1560 ml Assessment & Plan Problem List: (1) Bipolar affective, mixed ICD Codes: F31.60 - Bipolar disorder, current episode mixed, unspecified Status: Acute Assessment & Plan Patient this time continues to have stable mood, responding well to medication regimen. Patient continues to manage her primary medical team for recent pneumonia and unclear whether she is medically cleared for discharge yet. Patient likely for discharge once medically cleared. Continue current treatment discharge planning in progress. Justification for Cont. Inpt. At risk for further decompensation if at lower level of care. Bong Armenta MD Nov 03, 2016 13:57
[2016-11-03] MEDS ORDERED: LEVA750T9 PO (14:23)
[2016-11-03] MEDS ORDERED: ARIP1TAB12 PO (14:27)
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
[2016-11-03 18:16] VITALS: BP 137/87; PULSE 96; RESP 17; TEMP 98.1; O2SAT 99
== END 2016-11-03 19:10 | disposition home or self-care (01) | DRG 885 ==
LOC: H4EA 20:15
PROVIDERS: ADMIT Student in an Organized Health Care Education/Training Program; ATTEND Student in an Organized Health Care Education/Training Program
DX: F31.60 Bipolar disorder, current episode mixed, unspecified (principal); J18.9 Pneumonia, unspecified organism; Z91.14 Patient's other noncompliance with medication regimen; H91.90 Unspecified hearing loss, unspecified ear; J45.909 Unspecified asthma, uncomplicated; E87.6 Hypokalemia; F17.210 Nicotine dependence, cigarettes, uncomplicated
CPT/HCPCS: 80061; 80202; 83036; 85025; 93005; 94640; 94664; J2543; J3370; J7050